=== PATIENT | male | born 1980 | race Two or more races ===

== ENCOUNTER 2016-11-01 15:27 | Emergency (ER) | payer MEDICAID ==
[~2016-11-01] VITALS: Ht 165.1 cm; Wt 79.4 kg
[~2016-11-01 15:27] MED LIST: ALLOPURINOL100 M1 ORAL; COLCRYS0.6 M1 PO; IBUPROFEN600 MG ORAL; NAPROXEN500 M2 ORAL; NORCO 5-325 TA1 EACH ORAL; ROBAXIN-750750 MG PO
--- NOTE | 2016-11-01 16:12 | Emergency Room Report ---
History of Present Illness General Chief Complaint: Edema Source: Patient Present Illness HPI 35 YO Male presents to the ED c/o Pain and swelling of left wrist x 2 days with hx of gout. pt. had gout attack of same wrist last month. pt. took on colchicine pill this am. pt. denies fevers, chills, trauma/fall. pt. denies taking allopurinol. pt denies open lesions of the skin. Denies numbness tingling or loss of sensation or gross motor movements of the extremities, incontinence of bowel or bladder. Denies CP, Palpitations, LOC, AMS, dizziness, Changes in Vision, Sensation, paresthesias, or a sudden severe headache. Allergies: Coded Allergies: No Known Allergies (Unverified , 07/16/14) Patient History Past Medical History: see triage record Past Surgical History: none Pertinent Family History: none Immunizations: UTD Reviewed Nursing Documentation: PMH: Agreed, PSxH: Agreed Nursing Documentation-PMH Past Medical History: No History, Except For Review of Systems All Other Systems: negative except mentioned in HPI Physical Exam Vital Signs Date Time Temp Pulse Resp B/P Pulse Ox O2 Delivery O2 Flow Rate FiO2 11/01/16 15:39 100.2 100 16 134/80 96 Room Air Sp02 EP Interpretation: reviewed, abnormal - tachycardic at 100bpm General Appearance: no apparent distress, alert, GCS 15, non-toxic Head: normocephalic, atraumatic Eyes: bilateral eye PERRL, bilateral eye normal inspection ENT: hearing grossly normal, normal pharynx, no angioedema, normal voice Neck: full range of motion, supple/symm/no masses Respiratory: lungs clear, normal breath sounds, speaking full sentences Cardiovascular #1: regular rate, rhythm, no edema Rectal: deferred Musculoskeletal: back normal, gait/station normal, normal range of motion, tender - moderate superficial ttp to light touch of the left wrist, erythema and swelling noted. mild increased temperature to palpation. Neurologic: alert, oriented x3, responsive, motor strength/tone normal, sensory intact, speech normal Psychiatric: judgement/insight normal, memory normal, mood/affect normal Skin: normal color, no rash, warm/dry, well hydrated Lymphatic: no adenopathy Medical Decision Making PA Attestation Dr. carlson is my supervising Physician whom patient management has been discussed with. Diagnostic Impression: Primary Impression: Gout attack Qualified Codes: M10.032 - Idiopathic gout, left wrist ER Course Pt. presents to the ED c/o Pain and swelling of left wrist x 2 days with hx of gout. pt. had gout attack of same wrist last month. pt. took on colchicine pill this am. pt. denies fevers, chills, trauma/fall. pt. denies taking allopurinol. Ddx considered but are not limited to cellulitis, Septic joint, pseudogout fracture, d/L, gout Vital signs: are WNL, pt. is afebrile H&PE are most consistent with recurrent gout attack. cellulitis is of suspicion , however given pt. just had gout attack last month at the same site acute gout attack is more likely. ORDERS: none required at this time, the diagnosis is clinical ED INTERVENTIONS: -1.2mg Colchicine -60mg Toradol IM d/w pt. to return to ED with worsening or new symptoms, or development of fevers. otherwise pt. to follow up with PCP. DISCHARGE: At this time pt. is stable for d/c to home. Will provide printed patient care instructions, and any necessary prescriptions. Care plan and follow up instructions have been discussed with the patient prior to discharge. Last Vital Signs Date Time Temp Pulse Resp B/P Pulse Ox O2 Delivery O2 Flow Rate FiO2 11/01/16 15:55 99 14 Room Air 11/01/16 15:39 100.2 134/80 96 Disposition: HOME, SELF-CARE Condition: Stable Scripts Indomethacin (INDOMETHACIN) 25 Mg Capsule 25 MG PO Q6HR for 5 Days, #30 CAP Prov: aPola Lazcano 11/01/16 Patient Instructions: Gout Additional Instructions: Take medications as directed. Follow up with PCP in 3-5 days Return sooner to ED if new symptoms occur, or current symptoms become worse. - Please note that this Emergency Department Report was dictated using [employer] technology software, occasionally this can lead to erroneous entry secondary to interpretation by the dictation equipment. Paola Lazcano Nov 01, 2016 16:12
[2016-11-01] MEDS ORDERED: Ketorolac 60mg Inj IM ONE (16:15)
[2016-11-01] MEDS ORDERED: INDOMETHACIN25 MG PO (16:26)
[2016-11-01 16:45] VITALS: BP 134/80
[2016-11-01 17:02] VITALS: BP 134/80
== END 2016-11-01 17:02 | disposition home or self-care (01) ==
LOC: EMR 16:08
DX: M10.9 Gout, unspecified (principal)
CPT/HCPCS: 96372; 99283

== ENCOUNTER 2016-12-31 23:32 | Emergency (ER) | payer MEDICAID ==
[~2016-12-31] VITALS: Ht 165.1 cm; Wt 85.3 kg
[~2016-12-31 23:32] MED LIST changes: +INDOMETHACIN25 MG PO
[2017-01-01 00:02] VITALS: BP 137/82
[2017-01-01] MEDS ORDERED: Norco 5mg/325mg tab ORAL ONE (00:45)
[2017-01-01 01:00] VITALS: BP 137/82
[2017-01-01] MEDS ORDERED: INDOCIN75 MG ORAL (01:00)
[2017-01-01] MEDS ORDERED: HYDROCODON-ACE1 EA15 ORAL (01:00)
--- NOTE | 2017-01-01 01:00 | Emergency Room Report ---
History of Present Illness General Chief Complaint: Pain Source: Patient Present Illness HPI Is a 36-year-old male with a history of gout. He has multiple gouty attacks in the past. He presents with chief complaint of left knee pain. Onset yesterday. Pain is 10 out of 10. Worse with walking. He has some leftover Indocin and is not helping. No fever or chills. No trauma. No other complaint. Allergies: Coded Allergies: No Known Allergies (Unverified , 07/16/14) Patient History Past Medical History: see triage record, old chart reviewed Past Surgical History: other Pertinent Family History: none Social History: Denies: smoking Immunizations: other Reviewed Nursing Documentation: PMH: Agreed, PSxH: Agreed Nursing Documentation-PM Past Medical History: No History, Except For Review of Systems Eye: Denies: blurred vision, eye pain ENT: Denies: ear pain, nose congestion, throat swelling Respiratory: Denies: cough, shortness of breath Cardiovascular: Denies: chest pain, palpitations Gastrointestinal: Denies: abdominal pain, diarrhea, nausea, vomiting Musculoskeletal: Reports: joint pain, Denies: back pain Skin: Denies: rash Neurological: Denies: headache, numbness Endocrine: Denies: increased thirst, increased urine Hematologic/Lymphatic: Denies: easy bruising All Other Systems: negative except mentioned in HPI Physical Exam Vital Signs Date Time Temp Pulse Resp B/P Pulse Ox O2 Delivery O2 Flow Rate FiO2 12/31/16 23:50 98.2 78 16 137/82 98 vitals normal Sp02 EP Interpretation: reviewed, normal General Appearance: well appearing, no apparent distress, alert Head: normocephalic, atraumatic Eyes: bilateral eye EOMI, bilateral eye PERRL ENT: hearing grossly normal, normal pharynx Neck: full range of motion, supple, no meningismus Respiratory: chest non-tender, lungs clear, normal breath sounds Cardiovascular #1: regular rate, rhythm, no murmur Gastrointestinal: normal bowel sounds, non tender, no mass, no organomegaly, no bruit, non-distended Musculoskeletal: back normal, other - Tenderness to the left knee diffusely. Mild edema. Tender to palpation. Sensation normal. He has tophi left third PIP joint. Also some on the left elbow. Neurologic: alert, oriented x3 Psychiatric: mood/affect normal Skin: warm/dry Medical Decision Making Diagnostic Impression: Primary Impression: Gout attack Qualified Codes: M10.9 - Gout, unspecified ER Course Patient with gouty attack. He's already showed evidence of tophi deposits. He would benefit from treatment with allopurinol daily. He needs to followup with his primary care for this. We'll treat with pain medication and NSAID. No evidence of septic joint. No evidence of any trauma. Last Vital Signs Date Time Temp Pulse Resp B/P Pulse Ox O2 Delivery O2 Flow Rate FiO2 01/01/17 00:02 98.2 78 16 137/82 98 Status: improved Disposition: HOME, SELF-CARE Condition: Stable Scripts Indomethacin (Indocin) 75 Mg Capsule.er 75 MG ORAL TID, #30 CAP Prov: KAILEE LYNCH M.D. 01/01/17 Hydrocodone/Acetaminophen 5-325* (HYDROCODONE/ACETAMINOPHEN 5-325*) 1 Each Tablet 1 TAB ORAL Q6H Y for For Pain, #30 TAB 0 Refills Prov: KAILEE LYNCH M.D. 01/01/17 Additional Instructions: Follow up with your doctor in 7 days. Return if worse. KAILEE LYNCH M.D. Jan 01, 2017 01:00
== END 2017-01-01 01:00 | disposition home or self-care (01) ==
LOC: EMR 23:55
DX: M10.9 Gout, unspecified (principal)
CPT/HCPCS: 99284

== ENCOUNTER 2017-01-29 01:00 | Emergency (ER) | payer MEDICAID ==
[~2017-01-29] VITALS: Ht 165.1 cm; Wt 81.6 kg
[~2017-01-29 01:00] MED LIST changes: +HYDROCODON-ACE1 EA15 ORAL; +INDOCIN75 MG ORAL
[2017-01-29 01:07] VITALS: BP 147/80
[2017-01-29] MEDS ORDERED: HYDROmorphone 1mg/ml Carpuject ONE (01:15)
[2017-01-29] MEDS ORDERED: PREDNISONE20 MG ORAL (01:17)
[2017-01-29] MEDS ORDERED: INDOMETHACIN75 MG ORAL (01:17)
[2017-01-29] MEDS ORDERED: HYDROCODON-ACE1 EA15 ORAL (01:17)
--- NOTE | 2017-01-29 01:18 | Emergency Room Report ---
History of Present Illness General Chief Complaint: Pain Source: Patient Present Illness HPI Is a 36-year-old male with a history of gout with frequent gouty attacks. He also had tophi deposits in his joints her ready. Patient presents with a gouty attack started yesterday. Localized to his left fingers and right foot. Pain is 10 out of 10. Worse with walking and movement. No fever chills but no nausea no vomiting. Similar to previous gouty attacks. Allergies: Coded Allergies: No Known Allergies (Unverified , 07/16/14) Patient History Past Medical History: see triage record, old chart reviewed Past Surgical History: other Pertinent Family History: none Social History: Denies: smoking Immunizations: other Reviewed Nursing Documentation: PMH: Agreed, PSxH: Agreed Nursing Documentation-PMH Past Medical History: No History, Except For Review of Systems Eye: Denies: blurred vision, eye pain ENT: Denies: ear pain, nose congestion, throat swelling Respiratory: Denies: cough, shortness of breath Cardiovascular: Denies: chest pain, palpitations Gastrointestinal: Denies: abdominal pain, diarrhea, nausea, vomiting Musculoskeletal: Reports: joint pain, joint swelling, Denies: back pain Skin: Denies: rash Neurological: Denies: headache, numbness Endocrine: Denies: increased thirst, increased urine Hematologic/Lymphatic: Denies: easy bruising All Other Systems: negative except mentioned in HPI Physical Exam Vital Signs Date Time Temp Pulse Resp B/P Pulse Ox O2 Delivery O2 Flow Rate FiO2 01/29/17 01:03 98.4 90 16 147/80 99 Room Air vitals normal Sp02 EP Interpretation: reviewed, normal General Appearance: well appearing, no apparent distress, alert Head: normocephalic, atraumatic Eyes: bilateral eye EOMI, bilateral eye PERRL ENT: hearing grossly normal, normal pharynx Neck: full range of motion, supple, no meningismus Respiratory: chest non-tender, lungs clear, normal breath sounds Cardiovascular #1: regular rate, rhythm, no murmur Gastrointestinal: normal bowel sounds, non tender, no mass, no organomegaly, no bruit, non-distended Musculoskeletal: back normal, gait/station normal, normal range of motion, other - Tender over her right medial ankle and dorsum of the foot. Tenderness over the third and fourth fingers. Psychiatric: mood/affect normal Skin: warm/dry Medical Decision Making Diagnostic Impression: Primary Impression: Gout attack Qualified Codes: M10.9 - Gout, unspecified ER Course Patient with gouty attacks. He would benefit from medication every day. Explained this to the patient and niece the primary care DrAimee for followup. He expressed understanding. No evidence of septic joint. We'll discharge home. Last Vital Signs Date Time Temp Pulse Resp B/P Pulse Ox O2 Delivery O2 Flow Rate FiO2 01/29/17 01:07 98.4 90 16 147/80 99 Room Air Status: improved Disposition: HOME, SELF-CARE Condition: Stable Scripts Indomethacin* (INDOMETHACIN*) 75 Mg Capsule.er 75 MG ORAL TID, #60 CAP 0 Refills Prov: KAILEE YLNCH M.D. 01/29/17 Prednisone* (PREDNISONE*) 20 Mg Tablet 60 MG ORAL DAILY, #15 TAB Prov: KAILEE LYNCH M.D. 01/29/17 Hydrocodone/Acetaminophen 5-325* (HYDROCODONE/ACETAMINOPHEN 5-325*) 1 Each Tablet 1 TAB ORAL Q6H Y for For Pain, #30 TAB 0 Refills Prov: KAILEE LYNCH M.D. 01/29/17 Additional Instructions: Follow up with your DrAimee in 7 days. Return if worse. KAILEE LYNCH M.D. Jan 29, 2017 01:18
[2017-01-29] MEDS: HYDROmorphone 1mg/ml Carpuject IM ONE (01:19)
== END 2017-01-29 01:24 | disposition home or self-care (01) ==
LOC: EMR 01:21
DX: M10.9 Gout, unspecified (principal)
CPT/HCPCS: 96372; 99284; J1170

== ENCOUNTER 2017-10-03 15:57 | Emergency (ER) | payer MEDICAID ==
[~2017-10-03] VITALS: Ht 160 cm; Wt 81.6 kg
[~2017-10-03 15:57] MED LIST changes: +INDOMETHACIN75 MG ORAL; +PREDNISONE20 MG ORAL
[2017-10-03 16:14] VITALS: BP 134/90
--- NOTE | 2017-10-03 16:26 | Emergency Room Report ---
History of Present Illness General Chief Complaint: Pain Source: Patient, Medical Record Present Illness HPI 36 yo male patient presents to ER complaining of bilateral ankle pain since [place] Miguel. Reports hx of gout, reports "this is gout pain". Denies recent injury. Reports being seen by PCP for symptoms, reports seen by them a few weeks ago, reports needs medication refill. Denies fever, chest pain, SOB. Reports eating healthy diet to prevent gout symptoms. Reports taking Indomethacin for gout, reports last dosage this morning. Allergies: Coded Allergies: No Known Allergies (Unverified , 07/16/14) Patient History Past Medical History: see triage record Reviewed Nursing Documentation: PMH: Agreed; PSxH: Agreed Nursing Documentation-PMH Past Medical History: No History, Except For Review of Systems All Other Systems: negative except mentioned in HPI Physical Exam Vital Signs Date Time Temp Pulse Resp B/P (MAP) Pulse Ox O2 Delivery O2 Flow Rate FiO2 10/03/17 16:05 98.2 76 19 134/90 98 Room Air 98.2 Sp02 EP Interpretation: reviewed, normal General Appearance: well appearing, no apparent distress, alert, GCS 15, non- toxic Head: normocephalic, atraumatic Eyes: bilateral eye normal inspection, bilateral eye PERRL ENT: hearing grossly normal, normal pharynx, no angioedema, normal voice, uvula midline, moist mucus membranes Neck: full range of motion Respiratory: lungs clear, normal breath sounds, no rhonchi, no respiratory distress, no accessory muscle use, no wheezing, speaking full sentences Cardiovascular #1: regular rate, rhythm, no edema Cardiovascular #2: 2+ dorsalis pedis (R), 2+ dorsalis pedis (L) Musculoskeletal: back normal, digits/nails normal, normal range of motion, no calf tenderness, Anisha's Sign negative, swelling, other - NVI, no tophi, no podagra, tender - bilateral anterior ankles Neurologic: alert, oriented x3, responsive, motor strength/tone normal, sensory intact Psychiatric: mood/affect normal Skin: no rash Lymphatic: no adenopathy Medical Decision Making PA Attestation Dr. Loyd is my supervising Physician whom patient management has been discussed with. Diagnostic Impression: Primary Impression: Gout attack ER Course Pt. presents to the ED c/o bilateral ankle pain. Ddx considered but are not limited to gout, sprain, strain, contusion. No warmth to joints, mild swelling, low suspicion of septic joint. Does not require imaging at this time, no recent injury. Vital signs: are WNL, pt. is afebrile ED INTERVENTIONS: Indomethacin provided in ER. Patient requesting work note. Provided patient with work note for 3 days. Patient reports feeling better following administration of medication. Patient walking with mild limp declined cane or crutches, reports has at home. Patient reports feeling better following administration fo medication in ER. Instructed to followup with PCP for further treatment and management. DISCHARGE: -Rx provided for Indomethacin Rx provided for prednisone for 5 days. At this time pt. is stable for d/c to home. Patient resting comfortably, in no acute distress, nontoxic appearing, talking without difficulty, smiling. Will provide printed patient care instructions, and any necessary prescriptions. Patient instructed to follow with primary care provider in 3 - 5 days and to discuss further gout and foot pain treatment. Care plan and follow up instructions have been discussed with the patient prior to discharge. Take medications as directed. Patient questions asked and answered. ER precautions given, patient instructed to return to ER immediately for any new or worsening of symptoms. Last Vital Signs Date Time Temp Pulse Resp B/P (MAP) Pulse Ox O2 Delivery O2 Flow Rate FiO2 10/03/17 16:14 98.2 76 19 134/90 98 Room Air 98.2 Disposition: HOME, SELF-CARE Condition: Stable Scripts Prednisone* (PREDNISONE*) 20 Mg Tablet 20 MG ORAL DAILY for 5 Days, #5 TAB 0 Refills Prov: Gregory Carrasco 10/03/17 Indomethacin (INDOMETHACIN) 50 Mg Capsule 50 MG PO BID, #30 CAP Prov: Gregory Carrasco 10/03/17 Patient Instructions: Gout, [id number] Additional Instructions: Followup with primary care provider in 3 -5 days for further treatment and referral. Take medications as directed. Patient questions asked and answered. ER precautions given, patient instructed to return to ER immediately for any new or worsening of symptoms. Gregory Carrasco Oct 03, 2017 16:26
[2017-10-03] MEDS ORDERED: INDOMETHACIN50 MG PO (16:40)
[2017-10-03] MEDS ORDERED: PREDNISONE20 MG ORAL (16:49)
[2017-10-03 16:56] VITALS: BP 134/90
[2017-10-03] MEDS ORDERED: Indomethacin 75 MG CAPSULE.ER ORAL SCH (18:00)
== END 2017-10-03 18:00 | disposition home or self-care (01) ==
LOC: EMR 16:38
DX: M10.9 Gout, unspecified (principal)
CPT/HCPCS: 99284

== ENCOUNTER 2017-12-10 08:07 | Emergency (ER) | payer MEDICAID ==
[~2017-12-10] VITALS: Ht 165.1 cm; Wt 81.6 kg
[~2017-12-10 08:07] MED LIST changes: +INDOMETHACIN50 MG PO
[2017-12-10 08:12] VITALS: BP 117/73
[2017-12-10] MEDS ORDERED: Ketorolac 60mg Inj IM ONE (08:30)
--- NOTE | 2017-12-10 08:32 | Emergency Room Report ---
History of Present Illness General Chief Complaint: Pain Source: Patient Present Illness HPI Patient has a history of gout. He states that for about a week he has had a flare in the knuckles of the second and third digits. He denies trauma. He denies fever or chills. He states this is the same as his usual gout flare. He has no other complaints. Allergies: Coded Allergies: No Known Allergies (Unverified , 07/16/14) Patient History Past Medical History: see triage record, other - gout Social History: Denies: smoking, alcohol use, drug use Reviewed Nursing Documentation: PMH: Agreed; PSxH: Agreed Review of Systems All Other Systems: negative except mentioned in HPI Physical Exam Vital Signs Date Time Temp Pulse Resp B/P (MAP) Pulse Ox O2 Delivery O2 Flow Rate FiO2 12/10/17 08:12 98.2 73 19 117/73 96 Room Air 98.2 Sp02 EP Interpretation: reviewed, normal General Appearance: no apparent distress, alert, GCS 15, non-toxic Head: normocephalic, atraumatic Eyes: bilateral eye normal inspection, bilateral eye PERRL ENT: hearing grossly normal, normal pharynx, no angioedema, normal voice Neck: full range of motion, supple/symm/no masses Respiratory: no respiratory distress, no retraction, no accessory muscle use, speaking full sentences Rectal: deferred Musculoskeletal: back normal, gait/station normal, normal range of motion, inflammation, swelling, other - R. hand with swelling at the MCP joint of the 2nd and 3rd digits. Minimal erythema. Neurologic: alert, oriented x3, responsive, motor strength/tone normal, sensory intact, speech normal Psychiatric: judgement/insight normal, memory normal, mood/affect normal, no suicidal/homicidal ideation Skin: normal color, no rash, warm/dry, well hydrated Medical Decision Making Diagnostic Impression: Primary Impression: Gout attack ER Course This patient has physical exam findings consistent with a gout flare. There is no evidence of septic arthritis on exam or history. I'm not concerned for this. The patient is given Toradol IM. I will place the patient on a rapid taper of indomethacin. The patient was instructed follow up closely with his primary care physician. The patient given close return precautions and follow- up instructions. Last Vital Signs Date Time Temp Pulse Resp B/P (MAP) Pulse Ox O2 Delivery O2 Flow Rate FiO2 12/10/17 08:12 98.2 73 19 117/73 96 Room Air 98.2 Status: improved Disposition: HOME, SELF-CARE Condition: Improved TRACEY SANDERS D.O. Dec 10, 2017 08:32
[2017-12-10] MEDS ORDERED: INDOMETHACIN50 MG PO (08:34)
[2017-12-10 09:09] VITALS: BP 136/78
== END 2017-12-10 09:10 | disposition home or self-care (01) ==
LOC: EMR 08:30
DX: M10.9 Gout, unspecified (principal)
CPT/HCPCS: 96372; 99283

== ENCOUNTER 2018-02-22 14:59 | Emergency (ER) | payer MEDICAID ==
[~2018-02-22] VITALS: Ht 165.1 cm; Wt 81.6 kg
--- NOTE | 2018-02-22 15:35 | Emergency Room Report ---
History of Present Illness General Chief Complaint: Pain Source: Patient Present Illness HPI 37-year-old male presents to the emergency department complaining of gout exacerbation of the left knee that is 10 out of 10 in severity pain with some swelling 1 week. Patient reports that he is out of his usual medication indomethacin. Patient denies erythema he denies recent open wounds he denies fevers or chills. Patient reports that his symptoms are consistent with previous episodes of gout flares. He denies trauma or fall. Denies numbness tingling or loss of sensation or gross motor movements of the extremities, incontinence of bowel or bladder. Denies CP, Palpitations, LOC, AMS, dizziness, Changes in Vision, weakness or a sudden severe headache. Pt. also reports hx of intermittent LBP with shooting sensation of pain. not currently happening. Allergies: Coded Allergies: No Known Allergies (Unverified , 07/16/14) Patient History Past Medical History: see triage record Past Surgical History: none Pertinent Family History: none Reviewed Nursing Documentation: PMH: Agreed; PSxH: Agreed Nursing Documentation-PMH Past Medical History: No History, Except For Review of Systems All Other Systems: negative except mentioned in HPI Physical Exam Vital Signs Date Time Temp Pulse Resp B/P (MAP) Pulse Ox O2 Delivery O2 Flow Rate FiO2 02/22/18 15:03 98.0 67 18 122/68 95 Room Air 98.1 Sp02 EP Interpretation: reviewed, normal General Appearance: no apparent distress, alert, GCS 15, non-toxic Head: normocephalic, atraumatic Eyes: bilateral eye normal inspection, bilateral eye PERRL ENT: hearing grossly normal, normal voice Neck: full range of motion Respiratory: chest non-tender, lungs clear, normal breath sounds, speaking full sentences Cardiovascular #1: regular rate, rhythm, no edema Gastrointestinal: normal bowel sounds, non tender, soft Rectal: deferred Genitourinary: normal inspection Musculoskeletal: back normal, normal range of motion, swelling - left knee, no erythema, other - no TTP in the lumbar spine., tender - left knee, FROM, Neurologic: alert, oriented x3, responsive, motor strength/tone normal, sensory intact, speech normal, grossly normal Psychiatric: judgement/insight normal Skin: normal color, no rash, warm/dry, well hydrated Medical Decision Making PA Attestation Dr. Liu is my supervising Physician whom patient management has been discussed with. Diagnostic Impression: Primary Impression: Gout attack Qualified Codes: M10.9 - Gout, unspecified ER Course 37-year-old male presents to the emergency department complaining of gout exacerbation of the left knee that is 10 out of 10 in severity pain with some swelling 1 week. Patient reports that he is out of his usual medication indomethacin. Patient denies erythema he denies recent open wounds he denies fevers or chills. Patient reports that his symptoms are consistent with previous episodes of gout flares. He denies trauma or fall. Denies numbness tingling or loss of sensation or gross motor movements of the extremities, incontinence of bowel or bladder. Denies CP, Palpitations, LOC, AMS, dizziness, Changes in Vision, weakness or a sudden severe headache. Pt. also reports hx of intermittent LBP with shooting sensation of pain. not currently happening. Ddx considered but are not limited to cellulitis, Septic joint, pseudogout fracture, d/L, gout Vital signs: are WNL, pt. is afebrile H&PE are most consistent with recurrent gout attack. ORDERS: none required at this time, the diagnosis is clinical ED INTERVENTIONS: --Indomethacin DISCHARGE: At this time pt. is stable for d/c to home. Will provide printed patient care instructions, and any necessary prescriptions. Care plan and follow up instructions have been discussed with the patient prior to discharge. Last Vital Signs Date Time Temp Pulse Resp B/P (MAP) Pulse Ox O2 Delivery O2 Flow Rate FiO2 02/22/18 15:03 98.0 67 18 122/68 95 Room Air 98.1 Disposition: HOME, SELF-CARE Condition: Stable Scripts Prednisone* (PREDNISONE*) 20 Mg Tablet 20 MG ORAL DAILY for 5 Days, #5 TAB 0 Refills Prov: Paola Lazcano 02/22/18 Indomethacin (Indomethacin) 50 Mg Capsule 25 MG ORAL Q8H for 5 Days, #15 CAP 0 Refills Prov: Paola Lazcano 02/22/18 Referrals: NOT CHOSEN IPA/MD,REFERRING (PCP) Departure Forms: Return to Work Return to Work Date: Feb 25, 2018 Work Restrictions: No Heavy Lifting, No Prolonged Standing Other Restrictions: light duty x 1 week, may return sooner if symptoms have resolved. Return to Full Activity: Mar 04, 2018 Patient Instructions: Gout, [id number] Additional Instructions: Take medications as directed. Follow up with a Primary Care Provider in 3-5 days, even if your symptoms have resolved. --Please review list of primary care clinics, if you do not already have a primary care provider Return sooner to ED if new symptoms occur, or current symptoms become worse. - Please note that this Emergency Department Report was dictated using [employer] technology software, occasionally this can lead to erroneous entry secondary to interpretation by the dictation equipment. Paola Lazcano Feb 22, 2018 15:35
[2018-02-22] MEDS ORDERED: PREDNISONE20 MG ORAL (15:36)
[2018-02-22] MEDS ORDERED: INDOCIN25 MG ORAL (15:36)
[2018-02-22] MEDS ORDERED: Indomethacin 25mg cap ONE (15:52)
[2018-02-22] MEDS ORDERED: Indomethacin 25mg cap ORAL ONE (16:00)
[2018-02-22 16:02] VITALS: BP 122/68
[2018-02-22] MEDS ORDERED: Indomethacin 75 MG CAPSULE.ER ORAL SCH (18:00)
== END 2018-02-22 16:02 | disposition home or self-care (01) ==
LOC: EMR 15:25
DX: M10.9 Gout, unspecified (principal); F17.200 Nicotine dependence, unspecified, uncomplicated
CPT/HCPCS: 99283

== ENCOUNTER 2018-12-16 22:11 | Emergency (ER) | payer MEDICAID ==
[~2018-12-16] VITALS: Ht 165.1 cm; Wt 59.0 kg
[~2018-12-16 22:11] MED LIST changes: +INDOCIN25 MG ORAL
[2018-12-16 22:43] VITALS: BP 137/85
--- NOTE | 2018-12-16 22:53 | Emergency Room Report ---
History of Present Illness General Chief Complaint: Pain Source: Patient Present Illness HPI Patient is a 37-year-old male presented after increased left-sided knee pain. Patient a prior history of gout. He had multiple visits to this emergency department for increased joint pain. He reports of increased pain with movement. Patient reportedly had a recent fall with some increased pain to the left knee. He had reportedly been taking medications intermittently for gout Allergies: Coded Allergies: No Known Allergies (Unverified , 07/16/14) Patient History Reviewed Nursing Documentation: PMH: Agreed; PSxH: Agreed Review of Systems All Other Systems: negative except mentioned in HPI Physical Exam Vital Signs Date Time Temp Pulse Resp B/P (MAP) Pulse Ox O2 Delivery O2 Flow Rate FiO2 12/16/18 22:27 99.9 106 18 137/85 (102) 99 Room Air General Appearance: well appearing, no apparent distress, alert, GCS 15 Head: normocephalic, atraumatic ENT: hearing grossly normal, normal voice Neck: full range of motion, supple Respiratory: no respiratory distress, speaking full sentences Cardiovascular #1: normal peripheral pulses, regular rate, rhythm, no edema Gastrointestinal: normal inspection Musculoskeletal: back normal, digits/nails normal, decreased range of mation - right knee, no erythema or warmth, swelling - left knee mild Neurologic: normal inspection, alert, oriented x3, responsive, dowel pointer III-XII nml as tested, normal gait Psychiatric: mood/affect normal Skin: no rash Medical Decision Making Diagnostic Impression: Primary Impression: Gouty arthritis ER Course Patient presented for increased joint pain. Differential diagnosis include was not limited to osteoarthritis, gout, among others. Patient had prior history of gouty arthritis. Patient was noted to have improvement in discomfort after medications.Patient was noted to have some improvement after medications. He was given crutches to use due to continued pain. Patient appears to be stable for outpatient evaluation with his primary care physician. He will be given prescription for further medications. Last Vital Signs Date Time Temp Pulse Resp B/P (MAP) Pulse Ox O2 Delivery O2 Flow Rate FiO2 12/16/18 22:43 99.9 18 137/85 99 Room Air 12/16/18 22:27 106 Status: improved Disposition: HOME, SELF-CARE Condition: Stable Scripts Indomethacin (INDOMETHACIN) 50 Mg Capsule 50 MG PO BID, #14 CAP Prov: Wade Liu MD 12/17/18 Wade Liu MD Dec 16, 2018 22:53
[2018-12-16] MEDS: Ketorolac 60mg Inj IM ONE (22:57)
[2018-12-17 00:37] VITALS: BP 135/85
[2018-12-17 00:45] VITALS: BP 135/85
[2018-12-17] MEDS ORDERED: INDOMETHACIN50 MG PO (00:45)
== END 2018-12-17 00:45 | disposition home or self-care (01) ==
LOC: EMR 22:44
DX: M10.9 Gout, unspecified (principal)
CPT/HCPCS: 96372; 99283

== ENCOUNTER 2019-04-10 11:01 | Emergency (ER) | payer MEDICAID ==
[~2019-04-10] VITALS: Ht 165.1 cm; Wt 77.1 kg
[2019-04-10 11:24] VITALS: BP 123/65
--- NOTE | 2019-04-10 11:24 | NUR ---
ED Nurse Note: Pt came in from home due to swelling and pain on L elbow and L knee x 5 days, suspcted Gout exacerbation. Pt is out of Indomethacin x 10 days, does not see his PCP until 04/29/19. Normal dosage 50mg x 2/day. Pain 8/10 at this time. AOOx4, vital signs stable. Will cont to monitor. Addendum: 04/10/19 at 1130 by [facility] ED Nurse Note: Pt came in from home due to swelling and pain on L elbow and L foot x 5 days, suspected Gout exacerbation. Pt is out of Indomethacin x 10 days, does not see his PCP until 04/29/19. Normal dosage 50mg x 2/day. Pain 8/10 at this time. AOOx4, vital signs stable. Will cont to monitor.
--- NOTE | 2019-04-10 11:37 | Emergency Room Report ---
History of Present Illness General Chief Complaint: Pain Source: Patient Present Illness HPI Patient presents with reports of a gout flareup he reports that the pain is in his left elbow Patient has had Multiple flareups of his gout reports that they are usually In the left large toe however he has had flareups in the shoulder and the elbow before denies any fevers or chills denies any chest pain or shortness of breath Denies any other rash patient reports that he has been seen by his primary physician is being given medications And also discussed diet control Allergies: Coded Allergies: No Known Allergies (Unverified , 07/16/14) Patient History Past Medical History: see triage record Reviewed Nursing Documentation: PMH: Agreed; PSxH: Agreed Nursing Documentation-PMH Past Medical History: No History, Except For Review of Systems All Other Systems: negative except mentioned in HPI Physical Exam Vital Signs Date Time Temp Pulse Resp B/P (MAP) Pulse Ox O2 Delivery O2 Flow Rate FiO2 04/10/19 11:20 98.4 66 19 123/65 (84) 100 Room Air Sp02 EP Interpretation: reviewed, normal General Appearance: well appearing, no apparent distress Head: normocephalic, atraumatic Eyes: bilateral eye PERRL, bilateral eye EOMI ENT: hearing grossly normal, normal pharynx, TMs + canals normal, uvula midline Neck: full range of motion, supple, no meningismus, no bony tend Respiratory: lungs clear, normal breath sounds, no rhonchi, no respiratory distress, no retraction, no accessory muscle use Cardiovascular #1: normal peripheral pulses, regular rate, rhythm, no edema, no gallop, no JVD, no murmur Gastrointestinal: normal bowel sounds, non tender, soft, no mass, no organomegaly, non-distended, no guarding, no hernia, no pulsatile mass, no rebound Genitourinary: no CVA tenderness Musculoskeletal: other - Some mild irritation is noted to the left elbow with mild swelling no obvious joint effusion no erythema Neurologic: oriented x3, responsive, computer patternmaker III-XII nml as tested, motor strength/ tone normal, sensory intact Psychiatric: mood/affect normal Skin: other - As above Lymphatic: normal inspection, no adenopathy Medical Decision Making Diagnostic Impression: Primary Impression: Gout attack ER Course Given the patient's history and presentation multiple differentials are in consideration including but not limited to infectious, septic joint, gout Patient's exam is consistent with gout flare joint is not warm Or erythematous Patient is afebrile and is treated symptomatically and will have close outpatient follow-up Last Vital Signs Date Time Temp Pulse Resp B/P (MAP) Pulse Ox O2 Delivery O2 Flow Rate FiO2 04/10/19 11:24 98.4 66 19 123/65 100 Room Air Status: improved Disposition: HOME, SELF-CARE Condition: Improved Scripts Indomethacin (INDOMETHACIN) 50 Mg Capsule 50 MG PO DAILY, #20 CAP Prov: Shubham Swann DO 04/10/19 Referrals: NOT CHOSEN [facility]/MD,REFERRING (PCP) Additional Instructions: Patient is provided with the discharge instructions notified to follow up with primary doctor in the next 2-3 days otherwise return to the er with any worsening symptoms. Please note that this report is being documented using [employer] technology. This can lead to erroneous entry secondary to incorrect interpretation by the dictating instrument. Shubham Swann DO Apr 10, 2019 11:37
[2019-04-10] MEDS ORDERED: INDOMETHACIN50 MG PO (11:42)
[2019-04-10] MEDS ORDERED: Ketorolac 60mg Inj IM ONE (11:45)
--- NOTE | 2019-04-10 11:49 | NUR ---
ED Nurse Note: Seen by medications as prescribed.
--- NOTE | 2019-04-10 11:49 | NUR ---
ED Nurse Note: Patient medication wasted following administration of correct dose. Witnessed by RN
[2019-04-10 12:20] VITALS: BP 113/71
--- NOTE | 2019-04-10 12:20 | NUR ---
ER DISCHARGE NOTE: Patient is cleared to be discharged per ERMD, pt is aox4, on room air, with stable vital signs. pt was given dc and prescription instructions, pt was able to verbalize understanding, pt id band removed without complications. pt is able to ambulate with steady gait. pt took all belongings. Patient not wishing to wait for reassessment of pain.
== END 2019-04-10 12:00 | disposition home or self-care (01) ==
LOC: EMR 11:17
DX: M10.9 Gout, unspecified (principal)
CPT/HCPCS: 96372; Z7502; 99283